=== PATIENT | female | born 1985 ===

== ENCOUNTER 2022-12-05 10:34 | Outpatient (AMB) | payer MEDICARE, SELFPAY ==
--- NOTE | 2022-12-05 10:46 | A.OFFVIS_ITS ---
Intake Vital Signs 12/05/22 10:49 Height 4 ft 11 in Weight 160 lb 0.889 oz BMI 32.3 BP 112/68 Blood Pressure Location Rt brachial Position Sitting Pulse 74 Pulse Source Pulse Oximeter Temp 98 F Temp Source Skin Pulse Oximetry (%) 99 Intake Visit Reasons: Joint/Muscle Pain Intake Note: * New pt presents today for consult. * C/o joint/muscle pain; mainly in the winter Housemaid Required: No Accompanied by: Self / Same As Patient Allergies No Known Allergies Allergy (Verified 12/05/22 10:51) Medication List - Last Reconciled 12/05/22 by Cecy Hazel MD escitalopram oxalate 20 mg PO DAILY ibuprofen 800 mg PO Q8H PRN lorazepam 0.5 mg PO QID PRN mirtazapine 30 mg PO BEDTIME oxycodone-acetaminophen 5-325 mg 1 tab PO DAILY PRN HPI HPI Comments History of Present Illness Details This is a 37-year-old female who presents for evaluation of chronic back pain, question of fibromyalgia. In 2018 patient had a lumbar disc herniation. Since then she has had chronic low back pain. She received a few cortisone injections which helped for a very short period of time, she had a laminectomy which also helped for short period of time. Since then patient has had chronic low back pain. The pain radiates to both lower extremities worse on the left. Associated with numbness in her feet. She is currently on oxycodone 28 tablets every 3 months. She has a history of anxiety and depression and follows with a psychiatrist and a psychologist. She is on Lexapro and mirtazapine. Patient also states that she gets pain with light touch. Some discomfort when hugged. [facility] Medical History (Updated 12/05/22 @ 11:26 by Cecy Hazel MD) Anxiety and depression Chronic low back pain Lumbar disc herniation Surgical History H/O abdominoplasty History of lumbar laminectomy Hx of bilateral breast reduction surgery Family History Mother Diabetes Hypothyroidism Father Alcohol abuse Social History Household Members: Children Alcohol intake: current Alcohol intake frequency: holidays/special occasions only Patient Tobacco Use Status: Former Tobacco user Current occupational status: unemployed Female Reproductive History Menstrual Total pregnancies: 3 Number of Living Children: 3 Review of Systems Musc Reports back pain, Reports arthralgias, Reports radiating pain into limb and Reports stiffness Psych Reports anxiety and Reports depression Physical Exam Vital Signs: Last Vital Signs Temp 98 F 12/05/22 10:49 Pulse 74 12/05/22 10:49 BP 112/68 12/05/22 10:49 Pulse Ox 99 12/05/22 10:49 BMI result Body Mass Index 32.3 Const General: cooperative, healthy appearing and comfortable Nutritional Appearance: obese Orientation/consciousness: patient oriented x3 Limitations: no limitations HEENT Head: Yes normocephalic and Yes atraumatic Mouth: moist mucous membranes Resp Effort & Inspection: normal respiratory effort and able to speak in complete sentences Auscultation: clear to auscultation bilaterally Cardio Rate: regular rate Rhythm: regular rhythm GI Inspection: No distended Palpation (GI): Soft to palpation and Tenderness to palpation present (GI) Skin General skin exam: no rashes or lesions noted Neuro General: patient oriented x3 Extrem Other: No active synovitis Few fibromyalgia tender points in her upper back Bilateral positive straight leg raise test, worse on the left Results Reviewed Results Reviewed: MRI OF LUMBAR SPINE NO CONTRAST Exam Date: 02/23/2021 3:20 PM Ordering Diagnosis: Lumbar herniated discLumbar radiculitis ? MRI of the lumbosacral spine without intravenous contrast. ? HISTORY: Worsening low back pain. Lumbar radiculitis. Status post microdiscectomy at L5-S1 level. ? Examination was performed on 1.5 Sheila magnet. Intravenous contrast was not given as it was ordered by the provider. Comparison with previous examinations, latest from 11/27/2018. ? ? Conus medullaris terminates at L1 level. Vertebral bodies are maintained in height. ? T12-L1, L1-2, L2-3 levels are unremarkable. ? At L3-4 level disc is slightly decreased in height and T2 signal. There is minimal retrolisthesis of L3 over L4. There is small broad-based right paramedian protrusion of the disc and mild hypertrophy of the facet joints. There is no spinal stenosis or nerve root compression. ? At L4-5 level there is mild diffuse bulging of the disc and moderate hypertrophy of the facet joints, slightly more prominent on the left. There is no spinal stenosis or nerve root compression. ? At L5-S1 level there is minimal retrolisthesis of L5 over S1. There is small defect in the left aspect of the lamina. There is mild hypertrophy of the facet joint. Disc is decreased in height and T2 signal. There is diffuse bulging of the disc, broad-based left lateral protrusion and tear of the annulus fibrosis on the left. Disc material abuts the S1 nerve roots. There is mild narrowing of the lateral recesses and L5 neural foramina. There is no evidence of obvious nerve root compression. ? Perivertebral soft tissues are unremarkable. ? CONCLUSIONS: Limited evaluation due to lack of intravenous contrast. Small right paramedian protrusion of the L3-4 disc. Mild degenerative changes at L4-5 level. Postsurgical and degenerative changes at L5-S1 level there is a tear of the annulus fibrosis and broadbase left lateral protrusion of the L5-S1 disc to the left. Effacement of the S1 nerve roots within the spinal canal. Partial left laminectomy at L5-S1 level. ? Reading Radiologist: Assessment & Plan Assessment & Plan (1) Chronic low back pain: Code(s): M54.50 - Low back pain, unspecified; G89.29 - Other chronic pain Qualifiers: Back pain laterality: midline Sciatica presence: with sciatica Sciatica laterality: sciatica laterality unspecified Qualified Code(s): M54.40 - Lumbago with sciatica, unspecified side; G89.29 - Other chronic pain Plan: This is a 37-year-old female who presents for evaluation of chronic back pain, question of fibromyalgia. In 2018 patient had a lumbar disc herniation.? Since then she has had chronic low back pain.? She received a few cortisone injections which helped for a very short period of time, she had a laminectomy which also helped for short period of time.? Since then patient has had chronic low back pain.? The pain radiates to both lower extremities worse on the left.? Associated with numbness in her feet.? She is currently on oxycodone 28 tablets every 3 months. Patient has not been evaluated by Pain Management any time recently. Will refer patient to pain management for further evaluation Patient has some features of fibromyalgia however I believe she needs re- evaluation of her low chronic back pain. Discussed management of fibromyalgia with patient. Is a noninflammatory, non- autoimmune central afferent processing disorder leading to a diffuse pain syndrome. Patient follows up regularly with a psychiatrist and a psychologist and is on Lexapro and mirtazapine. Try to follow sleep hygiene practices. Discuss CBT for sleep with psychotherapist. Patient would benefit from increased physical activity, either through formal physical therapy or by joining a gym. Patient walks daily around her complex, I suggested adding more light exercises such as swimming, with therapy, stretching or yoga. Follow-up as needed Plan I spent 30 minutes reviewing patient's chart, evaluating patient, ordering diagnostic workup, counseling patient and documenting in the chart Orders: Referrals Pain Management Referral M51.26 - Other intervertebral disc displacement, lumbar region Coding Level of Care Code New Pt Level 3 (61494) Diagnoses Chronic low back pain M54.40; G89.29 Back pain laterality: midline Sciatica presence: with sciatica Sciatica laterality: sciatica laterality unspecified
[2022-12-05 10:49] VITALS: BP 112/68; PULSE 74; TEMP 36.6; O2SAT 99; BMI 32.3
== END 2022-12-05 11:21 | disposition home or self-care (01) ==
PROVIDERS: PCP Internal Medicine; Visit Provider Student in an Organized Health Care Education/Training Program
DX: M54.40 Lumbago with sciatica, unspecified side (principal); G89.29 Other chronic pain
CPT/HCPCS: 99203

== ENCOUNTER → 2022-12-05 10:34 | Outpatient (BNVA) | payer MEDICARE, SELFPAY | PROVIDERS: PCP Internal Medicine; Visit Provider Student in an Organized Health Care Education/Training Program | DX: M54.40 Lumbago with sciatica, unspecified side (principal); G89.29 Other chronic pain | CPT/HCPCS: 99202 ==

== ENCOUNTER 2022-12-13 08:22 | Outpatient (AMB) | payer MEDICARE, SELFPAY ==
--- NOTE | 2022-12-13 08:30 | A.OFFVIS_ITS ---
Intake Vital Signs 12/13/22 08:39 Height 4 ft 11 in Weight 159 lb 4 oz BMI 32.2 BP 110/64 Blood Pressure Location Rt brachial Position Sitting Pulse 66 Pulse Source Pulse Oximeter Pulse Oximetry (%) 99 Oxygen Delivery Method Room Air Intake Visit Reasons: Other intervertebral disc displacement, lumbar Intake Note: Pain today 10/21 Field Representative/Health Education Required: No Accompanied by: Self / Same As Patient Allergies No Known Allergies Allergy (Verified 12/13/22 08:39) HPI Other intervertebral disc displacement, lumbar HPI Details Patient is a pleasant 37 years old female with prior history of chronic low back pain, disc herniations s/p left partial L5-S1 laminectomy, fibromyalgia, depression, presents today for initial evaluation of low back pain. She was referred to us by [facility] Rheumatology. Denies any recent trauma, injury or falls. Back pain is axial and also radiates to left buttock and into left lower extremity, into the calf and heel with numbness, tingling, stabbing and shooting. She also reports widespread body pain, frequent fatigue, sleep disturbances and difficulties with daily functioning due to pain. Reports back surgery in 2018 helped for a less than a year. She had cortisone injection prior back surgery without relief. Patient reports she did not gain functioning or improvement in her pain with PT either. She does home exercise program and daily walks but reports increase in her back pain after walking for 15-20 min. Denies previous chiropractic manipulation, massage, aqua therapy, acupuncture, TENS unit or home exercise program. Pain affects her daily activities, functioning, sleep, social activities, mood and quality of life. Lumbar spine MRI 2020 is noted below. Denies any fever, abdominal or groin pain, dizziness, shortness of breath, foot, bladder or bowel incontinence or saddle anesthesia. Reports intermittent left lower extremity weakness with prolonged walking or grocery shopping. Patient is currently unemployed and is on permanent disability. She lives with her family, has 3 children. Denies smoking, illicit drug use and consumes alcohol occasionally on holidays. Drinks one cup of coffee in the morning. Location Lower back radiates into LLE posteriorly Duration Chronic pain for 5 years Characteristics of symptom or complaint Aching, sore, stabbing, pins and needles, numbness Aggravating or associated factors Movements, walking, bending, climbing stairs, cold weather Relieving factors Oxycodone, NSAIDs, rest Treatment PT ~3 years ago no improvement. Cortisone back injection- no relief PFSH Medical History Anxiety and depression Chronic low back pain Lumbar disc herniation Surgical History H/O abdominoplasty History of lumbar laminectomy Hx of bilateral breast reduction surgery Family History Mother Diabetes Hypothyroidism Father Alcohol abuse Social History Household Members: Children Alcohol intake: current Alcohol intake frequency: holidays/special occasions only Patient Tobacco Use Status: Former Tobacco user Current occupational status: unemployed Review of Systems Const All systems reviewed & are unremarkable except as noted in HPI and below Physical Exam Vital Signs: Last Vital Signs Pulse 66 12/13/22 08:39 BP 110/64 12/13/22 08:39 Pulse Ox 99 12/13/22 08:39 Oxygen Delivery Method Room Air 12/13/22 08:39 BMI result Body Mass Index 32.2 General: Appears afebrile. Alert and oriented. Mood and affect appropriate. Follows and participates in conversation appropriately. Respiratory effort is unlabored. No cough. Able to transition from sit to stand unassisted. Back/Spine/Pelvis Other: Patient is able to walk and stand on heels and tip toes with no difficulties demonstrating good motor tone. No limping. Can flex forward to 70-75 degrees and extend to 5-10 degrees before experiencing lumbar pain. Demonstrates 5/5 strength of quadriceps bilaterally as well as flexion/dorsiflexion of bilateral feet against resistance. 2+ pedal pulses bilaterally. Straight leg rise with dorsiflexion positive on the left, negative on the right. +2 patellar an achilles reflexes bilaterally. Facet loading test positive bilaterally. Melvin sign + bilat, Rod?s and Stinchfield tests reproduce stretching pain in lateral hips but not in the lower back in the projections of SIJ areas. No groin pain with I/E hip rotations. Valsalva maneuver negative. Multiple TTP triger point upper and lower extremities consistent with fibromyalgia. Cervical Spine: cervical ROM normal, cervical muscular tenderness and No Cervical spine tenderness Thoracic/Lumbar Spine: thoracic and lumbar spine normal to inspection, Thoracic/lumbar spine scar(s), thoraco-lumbar ROM normal, Lasegue's sign positive on the left and localized, pain with thoraco-lumbar ROM, paraspinal muscle tenderness, thoraco-lumbar ROM limited, No thoracic spinal tenderness and lumbar spinal tenderness (L4-S1) Pelvis: buttock tenderness on the left and sciatic notch tenderness on the left Sacroiliac joints: bilaterally tender to palpation Results Reviewed Results Reviewed: MRI OF LUMBAR SPINE NO CONTRAST Exam Date: 02/23/2021 3:20 PM Ordering Diagnosis: Lumbar herniated discLumbar radiculitis ? MRI of the lumbosacral spine without intravenous contrast. ? HISTORY: Worsening low back pain. Lumbar radiculitis. Status post microdiscectomy at L5-S1 level. ? Examination was performed on 1.5 Sheila magnet. Intravenous contrast was not given as it was ordered by the provider. Comparison with previous examinations, latest from 11/27/2018. ? ? Conus medullaris terminates at L1 level. Vertebral bodies are maintained in height. ? T12-L1, L1-2, L2-3 levels are unremarkable. ? At L3-4 level disc is slightly decreased in height and T2 signal. There is minimal retrolisthesis of L3 over L4. There is small broad-based right paramedian protrusion of the disc and mild hypertrophy of the facet joints. There is no spinal stenosis or nerve root compression. ? At L4-5 level there is mild diffuse bulging of the disc and moderate hypertrophy of the facet joints, slightly more prominent on the left. There is no spinal stenosis or nerve root compression. ? At L5-S1 level there is minimal retrolisthesis of L5 over S1. There is small defect in the left aspect of the lamina. There is mild hypertrophy of the facet joint. Disc is decreased in height and T2 signal. There is diffuse bulging of the disc, broad-based left lateral protrusion and tear of the annulus fibrosis on the left. Disc material abuts the S1 nerve roots. There is mild narrowing of the lateral recesses and L5 neural foramina. There is no evidence of obvious nerve root compression. ? Perivertebral soft tissues are unremarkable. ? CONCLUSIONS: Limited evaluation due to lack of intravenous contrast. Small right paramedian protrusion of the L3-4 disc. Mild degenerative changes at L4-5 level. Postsurgical and degenerative changes at L5-S1 level there is a tear of the annulus fibrosis and broadbase left lateral protrusion of the L5-S1 disc to the left. Effacement of the S1 nerve roots within the spinal canal. Partial left laminectomy at L5-S1 level. ? Reading Radiologist: Assessment & Plan Assessment & Plan (1) Lumbar post-laminectomy syndrome: Code(s): M96.1 - Postlaminectomy syndrome, not elsewhere classified (2) Chronic low back pain: Code(s): M54.50 - Low back pain, unspecified; G89.29 - Other chronic pain Qualifiers: Back pain laterality: midline Sciatica laterality: sciatica laterality unspecified Sciatica presence: with sciatica Qualified Code(s): M54.40 - Lumbago with sciatica, unspecified side; G89.29 - Other chronic pain (3) Lumbar spondylosis: Code(s): M47.816 - Spondylosis without myelopathy or radiculopathy, lumbar region (4) Fibromyalgia: Code(s): M79.7 - Fibromyalgia (5) Lumbar degenerative disc disease: Code(s): M51.36 - Other intervertebral disc degeneration, lumbar region Plan 1. Lumbar spine imaging to assess degree of degenerative changes, any subluxation, listhesis or pars defects. Most recent lumbar spine MRI of 2020 reviewed and noted above. 2. Discussed treatments for axial low back pain and radicular low back pain. Patient reports radicular symptoms have been affecting her daily functioning, caring for her family and sleep. Will proceed with Caudal TEE with catheter with local and fluoroscopy. Expectations, risks and benefits were reviewed. Patient is aware she will be contacted to schedule this procedure. 3. Script sent for gabapentin and lidocaine patches. Side effects and precautions reviewed with patient. All questions were answered and the patient is in agreement of plan. Follow-up after injections and sooner as needed. Orders: Orders XR lumbar spine 6V w bending 12/13/22 G89.29 - Other chronic pain, M47.816 - Spondylosis without myelopathy or radiculopathy, lumbar region, M54.50 - Low back pain, unspecified, M96.1 - Postlaminectomy syndrome, not elsewhere classif ied Medications: New gabapentin 300 mg PO TID 30 days 90 caps 0RF pain G89.29 - Other chronic pain, M54.50 - Low back pain, unspecified, M79.7 - Fibromyalgia, M96.1 - Postlaminectomy syndrome, not elsewhere classified lidocaine 5% Apply to affected sites up to 12 hours per day 1 patch topical DAILY 30 days 30 ea 1RF pain M47.816 - Spondylosis without myelopathy or radiculopathy, lumbar region, M96.1 - Postlaminectomy syndrome, not elsewhere classified Coding Level of Care Code New Pt Level 4 (33764) Diagnoses Lumbar post-laminectomy syndrome M96.1 Chronic low back pain M54.40; G89.29 Back pain laterality: midline Sciatica laterality: sciatica laterality unspecified Sciatica presence: with sciatica Lumbar spondylosis M47.816 Fibromyalgia M79.7 Lumbar degenerative disc disease M51.36
[2022-12-13 08:39] VITALS: BP 110/64; PULSE 66; O2SAT 99; BMI 32.2
== END 2022-12-13 09:07 | disposition home or self-care (01) ==
PROVIDERS: PCP Internal Medicine; Visit Provider Nurse Practitioner Family
DX: G89.29 Other chronic pain (principal); M96.1 Postlaminectomy syndrome, not elsewhere classified; M54.40 Lumbago with sciatica, unspecified side; M54.16 Radiculopathy, lumbar region; M47.816 Spondylosis without myelopathy or radiculopathy, lumbar region; M79.7 Fibromyalgia; M51.36 Other intervertebral disc degeneration, lumbar region
CPT/HCPCS: 99204

== ENCOUNTER → 2022-12-13 08:22 | Outpatient (BNVA) | payer MEDICARE, SELFPAY | PROVIDERS: PCP Internal Medicine; Visit Provider Nurse Practitioner Family ==

== ENCOUNTER 2022-12-19 08:03 | Outpatient (REF) | payer MEDICARE, SELFPAY ==
--- NOTE | ~2022-12-19 | XR_ITS ---
EXAMINATION: XR LUMBOSACRAL SPINE CLINICAL INFORMATION: Postlaminectomy syndrome. COMPARISON: None TECHNIQUE: AP and lateral (neutral, flexion and extension) views of the lumbar spine and lateral view of the lumbosacral junction. FINDINGS: Vertebral body heights are normal. At L3-L4, there is a 2 mm retrolisthesis. There is mild to moderate disc space narrowing at L5-S1. No acute fracture or spondylolisthesis is seen. There is no instability with flexion or extension. There is multi-level very mild thoracolumbar spondylosis. The posterior elements are intact. There is facet arthropathy, most pronounced at L4-L5 and L5-S1. The paravertebral soft tissues are unremarkable. Essure fallopian tube closure devices are noted. XR/XR lumbar spine 6V w bending IMPRESSION: 1. There is mild degenerative disc disease at L3-L4, and mild to moderate degenerative disc disease is seen at L5-S1. 2. There is no instability with flexion or extension. 3. There is multi-level very mild thoracolumbar spondylosis. 4. There is facet arthropathy, most pronounced at L4-L5 and L5-S1.
== END 2022-12-19 08:04 | disposition home or self-care (01) ==
LOC: HO.XRAY 08:03
PROVIDERS: PCP Internal Medicine; Visit Provider Nurse Practitioner Family
DX: M96.1 Postlaminectomy syndrome, not elsewhere classified (principal); M54.50 Low back pain, unspecified; G89.29 Other chronic pain; M47.816 Spondylosis without myelopathy or radiculopathy, lumbar region
CPT/HCPCS: 72114

== ENCOUNTER 2023-01-14 06:07 | Outpatient (REF) | payer MEDICARE, SELFPAY ==
--- NOTE | ~2023-01-14 | FL_ITS ---
EXAMINATION: XR FLUOROSCOPY WITH IMAGES CLINICAL INFORMATION: Post laminectomy syndrome, not elsewhere classified. COMPARISON: None available. TECHNIQUE: Fluoroscopy Supervised By: Dr. Fausto Concepcion. Fluoroscopy Time: 0.1 minute. Cumulative Dose: 7.62 mGy. DAP: 0.132 Gycm2. Images: 2. FINDINGS: Initial image demonstrates needle projecting posterior to the lower sacrum. Second image demonstrates contrast injection over the sacrum and small catheter projecting over the lumbar sacral spinal canal and contrast injection on the right at the L4-L5 level. FL/FL guidance in treatment room IMPRESSION: Fluoroscopy guidance for pain management procedure
== END 2023-01-14 06:08 | disposition home or self-care (01) ==
LOC: CF 06:07
PROVIDERS: Visit Provider Anesthesiology
DX: M96.1 Postlaminectomy syndrome, not elsewhere classified (principal); M54.50 Low back pain, unspecified; M47.816 Spondylosis without myelopathy or radiculopathy, lumbar region; M51.36 Other intervertebral disc degeneration, lumbar region; M79.7 Fibromyalgia
CPT/HCPCS: 62323; J3301

== ENCOUNTER 2023-01-14 09:28 | Outpatient (AMB) | payer MEDICARE, SELFPAY ==
[2023-01-14 09:36] VITALS: BP 104/58; PULSE 76; RESP 16; O2SAT 99; BMI 32.1
--- NOTE | 2023-01-14 09:36 | MHC.OFFVIS ---
Intake Vital Signs 01/14/23 09:36 01/14/23 11:20 Height 4 ft 11 in 4 ft 11 in Weight 159 lb 159 lb BMI 32.1 32.1 BP 104/58 L 114/68 Blood Pressure Location Rt brachial Rt brachial Position Sitting Sitting Respiration 16 16 Pulse 76 70 Pulse Source Pulse Oximeter Pulse Oximeter Pulse Oximetry (%) 99 99 Oxygen Delivery Method Room Air Room Air Comment pre-op post-op Intake Visit Reasons: CAUDAL TEE W/CATHETER/LOCAL Allergies No Known Allergies Allergy (Verified 01/14/23 11:22) PFSH Medical History Anxiety and depression Chronic low back pain Lumbar disc herniation Surgical History H/O abdominoplasty History of lumbar laminectomy Hx of bilateral breast reduction surgery Family History Mother Diabetes Hypothyroidism Father Alcohol abuse Social History Household Members: Children Alcohol intake: current Alcohol intake frequency: holidays/special occasions only Patient Tobacco Use Status: Former Tobacco user Current occupational status: unemployed Physical Exam Vital Signs: Last Vital Signs Pulse 70 01/14/23 11:20 Resp 16 01/14/23 11:20 BP 114/68 01/14/23 11:20 Pulse Ox 99 01/14/23 11:20 Oxygen Delivery Method Room Air 01/14/23 11:20 BMI result Body Mass Index 32.1 Results Reviewed Results Reviewed: 01/14/23 09:57 Lidocaine HCl 2 % MPF [Xylocaine 2 % MPF] 5 ml .ROUTE .STK-MED ONE Triamcinolone Acetonide [Kenalog-40] 40 mg .ROUTE .STK-MED ONE 01/14/23 10:00 LORazepam [Ativan] 1 mg .ROUTE .STK-MED ONE 01/14/23 10:09 Triamcinolone Acetonide [Kenalog-40] 40 mg .ROUTE .STK-MED ONE Assessment & Plan Assessment & Plan (1) Lumbar post-laminectomy syndrome: Code(s): M96.1 - Postlaminectomy syndrome, not elsewhere classified Plan: CAUDAL EPIDURAL STEROID INJECTION WITH CATHETER. Informed consent was explained to the patient. All questions were explained and answered.? The patient was taken inside of the operating room where she was positioned prone on the operating table.? Time-out was performed delineating patient's name and date of , correct site, side, the nature of the procedure, patient's allergy, preoperative antibiotic if needed.? All operating room staff AND THE PATIENT was participating in OR time-out procedure.? ? Her lower back? UPPER BUTTOCKS and intergluteal crease were prepped with ChloraPrep and draped with sterile towels.? Sterilely draped C-arm was brought over the operating field and? the picture of the sacral bone and the coccygeal spine superimposing on symphysis pubis in strict midline fashion was demonstrated on the screen.? After that the position of the C-arm was changed into lateral.? The skin wheal was raised in the projection of the lowest point of the sacral bone strictly on midline.? 18 gauge 10 cm Touhy needle was inserted through the skin wheal and advanced toward the caudal canal in anterior posterior and lateral views.? When needle entered the caudal canal injection of the contrast was performed demonstrating epidural spread of the contrast.? After that epidural catheter was advanced through the needle until the resistance was felt at approximately 25 cm.? The injections of the contrast into the epidural catheter demonstrated spread of the contrast in the projection of L5 vertebra.? After that 27 cc of normal saline was injected into the catheter, following that 5 cc of preservative-free lidocaine 1% mixed with Kenalog was injected into the catheter.? The catheter was removed with the needle on mass.? The tip of the catheter was intact. Sterile dressing with bacitracin ointment was applied to the needle stick. The patient tolerated procedure well.? The patient was taking outside of the operating room to the recovery room.? The patient recovered uneventfully.? The patient went home without immediate complica (2) Chronic low back pain: Code(s): M54.50 - Low back pain, unspecified; G89.29 - Other chronic pain Qualifiers: Back pain laterality: midline Sciatica presence: with sciatica Sciatica laterality: sciatica laterality unspecified Qualified Code(s): M54.40 - Lumbago with sciatica, unspecified side; G89.29 - Other chronic pain (3) Lumbar spondylosis: Code(s): M47.816 - Spondylosis without myelopathy or radiculopathy, lumbar region (4) Fibromyalgia: Code(s): M79.7 - Fibromyalgia (5) Lumbar degenerative disc disease: Code(s): M51.36 - Other intervertebral disc degeneration, lumbar region Plan 1. Lumbar spine imaging to assess degree of degenerative changes, any subluxation, listhesis or pars defects. Most recent lumbar spine MRI of 2020 reviewed and noted above. 2. Discussed treatments for axial low back pain and radicular low back pain. Patient reports radicular symptoms have been affecting her daily functioning, caring for her family and sleep. Will proceed with Caudal TEE with catheter with local and fluoroscopy. Expectations, risks and benefits were reviewed. Patient is aware she will be contacted to schedule this procedure. 3. Script sent for gabapentin and lidocaine patches. Side effects and precautions reviewed with patient. All questions were answered and the patient is in agreement of plan. Follow-up after injections and sooner as needed. Orders: Orders FL guidance in treatment room 01/14/23 M96.1 - Postlaminectomy syndrome, not elsewhere classified Coding Level of Care Code Procedure Only Diagnoses Lumbar post-laminectomy syndrome M96.1 Chronic midline low back pain with sciatica, sciatica laterality unspecified M54.40; G89.29 Back pain laterality: midline Sciatica presence: with sciatica Sciatica laterality: sciatica laterality unspecified Lumbar spondylosis M47.816 Fibromyalgia M79.7 Lumbar degenerative disc disease M51.36
[2023-01-14 11:20] VITALS: BP 114/68; PULSE 70; RESP 16; O2SAT 99; BMI 32.1
== END 2023-01-14 10:41 | disposition home or self-care (01) ==
LOC: HO.PMCPRC 09:28
PROVIDERS: PCP Internal Medicine; Visit Provider Anesthesiology
DX: M96.1 Postlaminectomy syndrome, not elsewhere classified (principal); M54.40 Lumbago with sciatica, unspecified side; G89.29 Other chronic pain; M47.816 Spondylosis without myelopathy or radiculopathy, lumbar region; M79.7 Fibromyalgia; M51.36 Other intervertebral disc degeneration, lumbar region
CPT/HCPCS: 62323